=== PATIENT | female | born 2000 ===

== ENCOUNTER 2022-05-02 18:35 | Inpatient (IN) | payer BC, MEDICAID ==
[~2022-05-02] VITALS: Ht 157.4 cm; Wt 53.3 kg
[2022-05-02] VITALS (11 sets, daily range): BP systolic 95–126; BP diastolic 48–85
[2022-05-02] MEDS ORDERED: LACTATED RINGERS 1,000 ML IV ONE (20:00)
[2022-05-02 20:03] LABS: BILIRUBIN,URINE NEGATIVE (NEGATIVE); CLARITY,URINE CLEAR; COLOR,URINE YELLOW; GLUCOSE, URINE (UA) NEGATIVE (NEGATIVE); KETONES,URINE NEGATIVE (NEGATIVE); LEUKOCYTE ESTERASE ,URINE TRACE (NEGATIVE); NITRITE,URINE NEGATIVE (NEGATIVE); PROTEIN,URINE NEGATIVE (NEGATIVE)
[2022-05-02 20:13] LABS: BACTERIA,URINE TRACE /HPF; RBC,URINE 0-2 /HPF
[2022-05-02] MEDS ORDERED: PREN-142 PO (20:32)
[2022-05-02 20:40] LABS: BASOPHILS % (AUTO) 0 % (0-10); EOSINOPHILS % (AUTO) 0 % (0-10); HEMATOCRIT 33 % (35-52); HEMOGLOBIN 10.7 g/dL (11.5-16.0); LYMPHOCYTES # (AUTO) 1.2 10^3/uL (1.0-4.0); LYMPHOCYTES % (AUTO) 7 % (12-44); MEAN CORPUSCULAR HEMOGLOBIN 29 pg (25-34); MEAN CORPUSCULAR HGB CONC 33 g/dL (32-36); MEAN CORPUSCULAR VOLUME 88 fL (80-99); MEAN PLATELET VOLUME 9.8 fL (9.0-12.2); MONOCYTES # (AUTO) 1.3 10^3/uL (0.0-1.0); MONOCYTES % (AUTO) 8 % (0-12); NEUTROPHILS # (AUTO) 14.4 10^3/uL (1.8-7.8); NEUTROPHILS % (AUTO) 84 % (42-75); PLATELET COUNT 230 10^3/uL (130-400); WHITE BLOOD COUNT 17.1 10^3/uL (4.3-11.0)
[2022-05-02] MEDS ORDERED: METOCLOPRAMIDE INJ 10 MG/2 ML (REGLAN) ONE (21:14)
[2022-05-02] MEDS ORDERED: FAMOTIDINE 20MG/2ML IV (PEPCID) ONE (21:14)
[2022-05-02] MEDS ORDERED: CITRIC ACID/SOB CIT (BICITRA) 30 ML UDC ONE (21:14)
[2022-05-02] MEDS ORDERED: LACTATED RINGERS 1,000 ML IV PRN (21:15)
[2022-05-02] MEDS ORDERED: METOCLOPRAMIDE INJ 10 MG/2 ML (REGLAN) IV ONE (21:15)
[2022-05-02] MEDS ORDERED: FAMOTIDINE 20MG/2ML IV (PEPCID) IV ONE (21:15)
[2022-05-02] MEDS ORDERED: CITRIC ACID/SOB CIT (BICITRA) 30 ML UDC PO ONE (21:15)
[2022-05-02] MEDS: LACTATED RINGERS 1,000 ML IV PRN ×2 (21:17→22:00)
[2022-05-02] MEDS ORDERED: ceFAZolin INJECTION 2,000 MG ONE (21:19)
[2022-05-02] MEDS ORDERED: NS (IVPB) 50 ML ONE (21:19)
[2022-05-02] MEDS ORDERED: OXYTOCIN PRE-MIX DRIP 1,000 ML IV ONE (21:30)
[2022-05-02] MEDS ORDERED: fentaNYL INJ 100 MCG/2 ML AMP ONE (21:30)
[2022-05-02] MEDS ORDERED: ceFAZolin INJECTION 2,000 MG in NS (IVPB) 50 ML IV ONE (21:30)
--- NOTE | 2022-05-02 21:39 | History & Physical-OB/GYN ---
History of Present Illness History of Present Illness Reason for visit/HPI Labor at 40w1d Date of Admission May 02, 2022 at 21:08 Date Seen by a Provider: May 02, 2022 Time Seen by a Provider: 21:00 I consulted on this patient on 05/02/22 21:33 Attending Physician Isaias Hankins DO Admitting Physician Admitting Physician: Kayleigh Hankins DO Attending Physician: Kayleigh Hankins DO Consult I was consulted by her Family Physician due to non-reassuring FHTs remote from delivery. She had been counseled regarding a primary LTCS, which I agree with. Upon my arrival, FHTs were 160-170 with minimal variability and early/variable decels. RN reports cervix at 2-3 cm dilation. Tocos q2-3 min. Allergies and Home Medications Allergies Coded Allergies: No Known Drug Allergies (Unverified , 05/02/22) Patient Home Medication List Home Medication List Reviewed: Yes Vit No.124/Iron/FA ( Vitamin Tablet) 27 Mg Iron-800 Mcg Tablet, 1 EACH PO DAILY, (Reported) Entered as Reported by: LINDA GOLDBERG on 05/02/222031 Last Action: New Order Past Mdofzfr-Txpjzw-Dgslrw Hx Patient Social History Smoking Status: Never a Smoker 2nd Hand Smoke Exposure: No Immunizations Up To Date Date of Influenza Vaccine: Dec 16, 2021 Surgeries No Respiratory No Reproductive System Expected Date of Delivery: May 01, 2022 Hx : 1 Hx Para: 0 Hx Total # of Abortions (Spona: 0 Review of Systems Constitutional: No no symptoms reported, No see HPI, No chills, No diaphoresis, No dizziness, No fever, No malaise, No weakness, No weight gain, No weight loss, No other EENTM: No see HPI, No no symptoms reported, No ear discharge, No hearing loss, No ear pain, No blurred vision, No double vision, No eye pain, No tearing, No vision loss, No dental problems, No hoarseness, No mouth pain, No mouth swel ling, No epistaxis, No nose congestion, No nose pain, No throat pain, No throat swelling, No other Respiratory: No no symptoms reported, No see HPI, No cough, No dyspnea on exertion, No hemoptysis, No orthopnea, No phlegm, No short of breath, No stridor, No wheezing, No other Cardiovascular: No no symptoms reported, No see HPI, No chest pain, No edema, No Hx of Intervention, No palpitations, No syncope, No vascular heart diseas, No other Gastrointestinal: No RUQ, No LUQ, No RLQ, No LLQ, No no symptoms reported, No see HPI; abdominal pain; No constipation, No diarrhea, No dysphagia, No hematemesis, No heartburn, No jaundice, No loss of appetite, No melena, No nausea, No vomiting, No other Genitourinary: No no symptoms reported, No see HPI, No decreased output, No discharge, No dysuria, No frequency, No hematuria, No hesitancy, No incontinence, No nocturia, No pain, No other : Yes Musculoskeletal: No no symptoms reported, No see HPI, No back pain, No gout, No joint pain, No joint swelling, No muscle pain, No muscle stiffness, No muscle cramps, No muscle twitching, No muscle weakness, No neck pain, No other Skin: No no symptoms reported, No see HPI, No change in color, No change in hair/nails, No dryness, No hx of skin cancer, No lesions, No lumps, No pruritus, No rash, No other Psychiatric/Neurological: Denies No Symptoms Reported, Denies See HPI, Denies Anxiety, Denies Depressed, Denies Emotional Problems, Denies Headache, Denies Numbness, Denies Paresthesia, Denies Pre-Existing Deficit, Denies Seizure, Denies Tingling, Denies Tremors, Denies Weakness, Denies Other All Other Systems Reviewed Negative Unless Noted: Yes Physical Exam Physical Exam Vital Signs Vital Signs Date Time Temp Pulse Resp B/P (MAP) Pulse Ox O2 Delivery O2 Flow Rate FiO2 05/02/22 19:15 37.3 115 18 126/77 100 Room Air 05/02/22 18:55 37.3 115 18 126/77 (93) 100 Room Air Capillary Refill : NONE Labs Laboratory Tests 05/02/22 18:45: Urine Color YELLOW, Urine Clarity CLEAR, Urine pH 7.0, Urine Specific [place] 1.015L, Urine Protein NEGATIVE, Urine Glucose (UA) NEGATIVE, Urine Ketones NEGATIVE, Urine Nitrite NEGATIVE, Urine Bilirubin NEGATIVE, Urine Urobilinogen 0.2, Urine Leukocyte Esterase TRACEH, Urine RBC (Auto) NEGATIVE, Urine RBC 0-2, Urine WBC 5-10H, Urine Squamous Epithelial Cells 2-5, Urine Crystals NONE, Urine Bacteria TRACE, Urine Casts NONE, Urine Mucus SMALLH, Urine Culture Indicated YES 05/02/22 19:55: White Blood Count 17.1H, Red Blood Count 3.70L, Hemoglobin 10.7L, Hematocrit 33L , Mean Corpuscular Volume 88, Mean Corpuscular Hemoglobin 29, Mean Corpuscular Hemoglobin Concent 33, Red Cell Distribution Width 15.0H, Platelet Count 230, Mean Platelet Volume 9.8, Immature Granulocyte % (Auto) 1, Neutrophils (%) (Auto) 84H, Lymphocytes (%) (Auto) 7L, Monocytes (%) (Auto) 8, Eosinophils (%) (Auto) 0, Basophils (%) (Auto) 0, Neutrophils # (Auto) 14.4H, Lymphocytes # (Auto) 1.2, Monocytes # (Auto) 1.3H, Eosinophils # (Auto) 0.0, Basophils # (Auto) 0.0, Immature Granulocyte # (Auto) 0.1 General Appearance: Mild Distress Respiratory: No Respiratory Distress Cardiovascular: No Edema Abdominal: other Pelvic Exam: deferred Extremity: No Calf Tenderness Assessment/Plan Assessment and Plan IUP at 40w1d Early labor Non-reassuring FHTs remote from delivery. GBS+ Fetus with known cleft lip. Will proceed with PLTCS. R/B/A d/w pt including but not limited to bleeding, infection, and risk of injury to bowel, bladder, ureters and large vessels. Admission Diagnosis Admission Status: Inpatient Order (span 2 midnights) Reason for Inpatient Admission: PLTCS KAYLEIGH HANKINS DO May 02, 2022 21:39
[2022-05-02] MEDS ORDERED: KETAMINE 50 MG/5 ML SYRINGE ONE (21:58)
[2022-05-02] MEDS ORDERED: KETAMINE HCL 100 MG/ML 5 ML VIAL ONE (22:04)
[2022-05-02] MEDS ORDERED: MIDAZOLAM 10 MG/2 ML (VERSED) VIAL ONE (22:05)
[2022-05-02] MEDS ORDERED: MIDAZOLAM 2 MG/2 ML (VERSED) VIAL ONE (22:05)
[2022-05-02] MEDS ORDERED: METHYLERGONOVINE 0.2 MG/ML (METHERGINE) AMP ONE (22:07)
[2022-05-02] MEDS ORDERED: CARBOPROST (HEMABATE) 250 MCG/ML AMP IM ONE (22:11)
[2022-05-02] MEDS ORDERED: proPOfol 200 MG/20 ML (DIPRIVAN) VIAL IV ONE ×2 (22:40→22:41)
[2022-05-02] MEDS ORDERED: TETANUS,DIPTH,PERTUSS P/F (BOOSTRIX) 0.5 ML VIAL IM SCH (22:45)
[2022-05-02] MEDS ORDERED: ONDANSETRON 4 MG/2 ML (SDV) Z0FRAN IVP PRN ×2 (22:45→23:00)
[2022-05-02] MEDS ORDERED: MEASLES,MUMPS,RUBELLA 1 EA INJ SC SCH (22:45)
[2022-05-02 22:48] LABS: BAND NEUTROPHILS 3 %; LYMPHOCYTES % (MANUAL) 16 %; MONOCYTES % (MANUAL) 4 %; NEUTROPHILS % (MANUAL) 77 %; PLATELET ESTIMATE NORMAL; RBC MORPH NORMAL
[2022-05-02] MEDS ORDERED: HYDROmorphone 2 MG/ML VIAL (DILAUDID) IV ONE (23:00)
[2022-05-02] MEDS ORDERED: oxyCODONE/APAP 5/325MG (PERCOCET 5) TABLET PO PRN (23:00)
[2022-05-02] MEDS ORDERED: HYDROmorphone 2 MG/ML VIAL (DILAUDID) ONE (23:01)
--- NOTE | 2022-05-02 23:03 | Cesarean Section Operative ---
Procedure Procedure Note Pre-operative Diagnosis: Funmilayo Frederick is a (21 /Para 1 / 0, Gestational Age (wks)40 in early labor with non-reassuring FHTs remote from delivery. GBS+. cleft lip. Post-operative Diagnosis: same as above. Uterine atony. Procedure: Primary low transverse section Physician: KAYLEIGH MUNGUIA DO Estimated blood loss: 1200 mL Disposition: Stable at transfer to recovery room. Findings: Viable female , Apgars 6/9, intact placenta, normal appearing uterus, tubes, and ovaries. Indications:Funmilayo Frederick is a (21 /Para 1 / 0,Gestational Age (wks) 40 presenting in early labor with non-reassuring FHTs remote from delivery. Procedure Details: The patient was seen in pre-op and the procedure was discussed with the patient in full, including the risks, benefits, and alternatives. All questions were answered. The patient was taken to the operating room and a time out was performed, verifying patient and procedure. After spinal anesthesia was placed by our anesthesia colleagues, the patient was placed in the dorsal supine with leftward tilt for uterine displacement.~ Her abdomen was then prepped and draped in the typical sterile fashion. A Pfannenstiel skin incision was made using a scalpel and carried down through the underlying fascia. The fascia was incised in the midline and tented up using Brendon clamps. On both the inferior and superior fascia side the rectus muscle was dissected off bluntly and sharply using Woods scissors. The peritoneum was identified and entered bluntly in the midline. This was then stretched laterally using manual strength. After entering the abdominal cavity the bladder blade was placed. A bladder flap was created with the use of Metzenbaum scissors.~ A scalpel was utilized to make a low transverse uterine incision. Amniotomy was performed bluntly and large amount of meconium stained fluid was noted. The 's head was grasped and brought to the level of the incision. Fundal pressure was applied and infant was delivered without difficulty. A large cleft lip was noted. Mouth was suctioned with bulb suction. After the umbilical cord was clamped and cut, the was handed off to the pediatric staff. Cord blood was then obtained. The placenta was delivered intact via uterine massage. The uterus was exteriorized and cleared of all clots and debris. The uterine incision was closed using 1.0 Vicryl in a running locked fashion. A second imbricated layer was placed using 1.0 Vicryl in a running fashion as well. The uterus was flexed forward and the posterior rectouterine space was inspected and cleared of all clots and debris. Uterine atony was encountered and she was given IV Pitocin, IM hemabate, IM Methergine, and IV TXA. Again the hysterotomy site was examined and hemostasis was observed. The bilateral tubes and ovaries appeared normal. The uterus was placed back into the abdominal cavity and abdominal gutters were cleared of all clots and debris. A final check of the uterine incision showed it to be hemostatic. The peritoneum and muscle were closed using 1-0 Vicryl suture. The fascia was closed with 2.0 Stratafix V-lock suture in a running fashion. The subcutaneous space was hemostatic. The skin was then closed using 4-0 Monocryl in a running subcuticular fashion. The skin edges were reapproximated together and were hemostatic. All sponge, lap and needle counts were correct at the end of the procedure per nursing. Vitals - Labs Vital Signs - I&O Vital Signs Date Time Temp Pulse Resp B/P (MAP) Pulse Ox O2 Delivery O2 Flow Rate FiO2 05/02/22 19:15 37.3 115 18 126/77 100 Room Air 05/02/22 18:55 37.3 115 18 126/77 (93) 100 Room Air 05/02/22 18:55 37.3 115 18 100 Room Air Labs Laboratory Tests 05/02/22 18:45: Urine Color YELLOW, Urine Clarity CLEAR, Urine pH 7.0, Urine Specific [place] 1.015L, Urine Protein NEGATIVE, Urine Glucose (UA) NEGATIVE, Urine Ketones NEGATIVE, Urine Nitrite NEGATIVE, Urine Bilirubin NEGATIVE, Urine Urobilinogen 0.2, Urine Leukocyte Esterase TRACEH, Urine RBC (Auto) NEGATIVE, Urine RBC 0-2, Urine WBC 5-10H, Urine Squamous Epithelial Cells 2-5, Urine Crystals NONE, Urine Bacteria TRACE, Urine Casts NONE, Urine Mucus SMALLH, Urine Culture Indicated YES 05/02/22 19:55: White Blood Count 17.1H, Red Blood Count 3.70L, Hemoglobin 10.7L, Hematocrit 33L , Mean Corpuscular Volume 88, Mean Corpuscular Hemoglobin 29, Mean Corpuscular Hemoglobin Concent 33, Red Cell Distribution Width 15.0H, Platelet Count 230, Mean Platelet Volume 9.8, Immature Granulocyte % (Auto) 1, Neutrophils (%) (Auto) 84H, Lymphocytes (%) (Auto) 7L, Monocytes (%) (Auto) 8, Eosinophils (%) (Auto) 0, Basophils (%) (Auto) 0, Neutrophils # (Auto) 14.4H, Lymphocytes # (Auto) 1.2, Monocytes # (Auto) 1.3H, Eosinophils # (Auto) 0.0, Basophils # (Auto) 0.0, Immature Granulocyte # (Auto) 0.1, Neutrophils % (Manual) 77, L ymphocytes % (Manual) 16, Monocytes % (Manual) 4, Band Neutrophils 3, Platelet Estimate NORMAL, Blood Morphology Comment NORMAL KAYLEIGH MUNGUIA DO May 02, 2022 23:03
[2022-05-02] MEDS: OXYTOCIN PRE-MIX DRIP 500 ML IV SCH (23:56)
[2022-05-03] VITALS (13 sets, daily range): BP systolic 93–106; BP diastolic 52–683
[2022-05-03] MEDS: oxyCODONE/APAP 5/325MG (PERCOCET 5) TABLET PO PRN ×5 (01:13→20:36)
[2022-05-03] MEDS ORDERED: AMPICILLIN FOR IV USE 2,000 MG in WATER (STERILE) FOR INJECTION 14.8 ML IV ONE (01:30)
[2022-05-03] MEDS ORDERED: AMPICILLIN 2,000 MG/14.8 ML (IV USE) ONE (02:08)
[2022-05-03] MEDS ORDERED: D5 LR IV SOLUTION 1,000 ML IV ONE (04:00)
[2022-05-03] MEDS: D5 LR IV SOLUTION 1,000 ML IV SCH ×2 (04:02→21:55)
[2022-05-03] MEDS: OXYTOCIN PRE-MIX DRIP 500 ML IV SCH (04:06)
[2022-05-03 06:10] LABS: BASOPHILS # (AUTO) 0.1 10^3/uL (0.0-0.1); BASOPHILS % (AUTO) 0 % (0-10); EOSINOPHILS # (AUTO) 0.1 10^3/uL (0.0-0.3); EOSINOPHILS % (AUTO) 0 % (0-10); LYMPHOCYTES # (AUTO) 1.3 10^3/uL (1.0-4.0); LYMPHOCYTES % (AUTO) 8 % (12-44); MEAN CORPUSCULAR HEMOGLOBIN 30 pg (25-34); MEAN CORPUSCULAR HGB CONC 34 g/dL (32-36); MEAN CORPUSCULAR VOLUME 88 fL (80-99); MEAN PLATELET VOLUME 9.6 fL (9.0-12.2); MONOCYTES % (AUTO) 6 % (0-12); NEUTROPHILS # (AUTO) 14.1 10^3/uL (1.8-7.8); NEUTROPHILS % (AUTO) 85 % (42-75); PLATELET COUNT 147 10^3/uL (130-400); WHITE BLOOD COUNT 16.5 10^3/uL (4.3-11.0)
[2022-05-03 06:13] LABS: HEMATOCRIT 19 % (35-52); HEMOGLOBIN 6.5 g/dL (11.5-16.0)
[2022-05-03] MEDS: CATHETER FLUSH 10 ML SYR IV SCH ×3 (06:18→22:53)
[2022-05-03] MEDS ORDERED: NS IV 500 ML 500 ML IV SCH (06:45)
[2022-05-03] MEDS ORDERED: CLINDAMYCIN 600 MG/50 ML IVPB 50 ML IV ONE (07:30)
[2022-05-03] MEDS ORDERED: D5W IV ONE (08:00)
[2022-05-03] MEDS ORDERED: GENTAMICIN IV ONE (08:00)
--- NOTE | 2022-05-03 08:03 | Anesthesia-Regional Post-Op ---
Regional Patient Condition Mental Status: Alert, Oriented x3 Circulation: Same as Pre-Op Headache: Absent Sensation: Full Recovery Motor Block: Absent Post Op Complications Complications None Follow Up Care/Instructions Patient Instructions None needed. Anesthesia/Patient Condition Patient is doing well, no complaints, stable vital signs, no apparent adverse anesthesia problems. No complications reported per nursing. [place] [facility] [place] Weiss CRNA May 03, 2022 08:03
[2022-05-03] MEDS: DOCUSATE SODIUM 100 MG (COLACE) CAP PO SCH ×2 (10:13→20:35)
[2022-05-03] MEDS: AMPICILLIN FOR IV USE 2,000 MG in WATER (STERILE) FOR INJECTION 14.8 ML IV SCH ×3 (11:05→21:52)
--- NOTE | 2022-05-03 12:20 | Postpartum Progress Note ---
Post Op Post-operative Day #1 Subjective: Patient had a fever shortly after the . She was started on IV abx and has not had a fever since then. Her Hgb came back <7 and she was symptomatic, so 2 units of PRBCs was ordered. She has received one unit so far. She is resting bed having slept most of the night and morning. [place] still in place. Minimal bleeding now per RN. Objective: Vital Signs 05/03/22 12:04 Temp 36.3 Pulse 89 Resp 18 B/P (MAP) 93/52 Pulse Ox 98 O2 Delivery Nasal Cannula O2 Flow Rate 1.00 Physical Exam: General - Alert and oriented, no apparent distress Abdomen - Soft, appropriately tender to palpation, non-distended, fundus firm at umbilicus Incision - dressing dry Extremities - no edema, negative Maya's bilaterally Laboratory Tests Test 05/02/22 18:45 05/02/22 19:55 05/03/22 01:30 05/03/22 05:52 Range/Units Urine Color YELLOW Urine Clarity CLEAR Urine pH 7.0 5-9 Urine Specific [place] 1.015 L 1.016-1.022 Urine Protein NEGATIVE NEGATIVE Urine Glucose (UA) NEGATIVE NEGATIVE Urine Ketones NEGATIVE NEGATIVE Urine Nitrite NEGATIVE NEGATIVE Urine Bilirubin NEGATIVE NEGATIVE Urine Urobilinogen 0.2 < = 1.0 MG/DL Urine Leukocyte Esterase TRACE H NEGATIVE Urine RBC (Auto) NEGATIVE NEGATIVE Urine RBC 0-2 /HPF Urine WBC 5-10 H /HPF Urine Squamous Epithelial Cells 2-5 /HPF Urine Crystals NONE /LPF Urine Bacteria TRACE /HPF Urine Casts NONE /LPF Urine Mucus SMALL H /LPF Urine Culture Indicated YES White Blood Count 17.1 H 16.5 H 4.3-11.0 10^3/uL Red Blood Count 3.70 L 2.18 L 3.80-5.11 10^6/uL Hemoglobin 10.7 L 6.5 #*L 11.5-16.0 g/dL Hematocrit 33 L 19 *L 35-52 % Mean Corpuscular Volume 88 88 80-99 fL Mean Corpuscular Hemoglobin 29 30 25-34 pg Mean Corpuscular Hemoglobin Concent 33 34 32-36 g/dL Red Cell Distribution Width 15.0 H 15.0 H 10.0-14.5 % Platelet Count 230 147 130-400 10^3/uL Mean Platelet Volume 9.8 9.6 9.0-12.2 fL Immature Granulocyte % (Auto) 1 1 % Neutrophils (%) (Auto) 84 H 85 H 42-75 % Lymphocytes (%) (Auto) 7 L 8 L 12-44 % Monocytes (%) (Auto) 8 6 0-12 % Eosinophils (%) (Auto) 0 0 0-10 % Basophils (%) (Auto) 0 0 0-10 % Neutrophils # (Auto) 14.4 H 14.1 H 1.8-7.8 10^3/uL Lymphocytes # (Auto) 1.2 1.3 1.0-4.0 10^3/uL Monocytes # (Auto) 1.3 H 1.0 0.0-1.0 10^3/uL Eosinophils # (Auto) 0.0 0.1 0.0-0.3 10^3/uL Basophils # (Auto) 0.0 0.1 0.0-0.1 10^3/uL Immature Granulocyte # (Auto) 0.1 0.1 0.0-0.1 10^3/uL Neutrophils % (Manual) 77 % Lymphocytes % (Manual) 16 % Monocytes % (Manual) 4 % Band Neutrophils 3 % Platelet Estimate NORMAL Blood Morphology Comment NORMAL Creatinine 0.65 0.60 0.60-1.30 MG/DL Assessment: post-operative day # 1, status post PLTCS. Uterine atony with significant hemorrhage - receiving 2 units of PRBCs now. fever - on IV abx (Amp/clinda/Gent - dosing per pharmacy). Plan: D/C [place] when second unit of PRBCs given. Increase activity today. Continue IV abx until fever free for 24 hours. Repeat H/H an hour after blood given. Vitals - Labs Vital Signs - I&O Vital Signs Date Time Temp Pulse Resp B/P (MAP) Pulse Ox O2 Delivery O2 Flow Rate FiO2 05/03/22 12:04 36.3 89 18 93/52 98 Nasal Cannula 1.00 05/03/22 11:45 36.4 97 18 97/53 98 Nasal Cannula 1.00 05/03/22 10:56 36.4 94 18 96/53 98 Nasal Cannula 1.00 05/03/22 10:22 36.8 05/03/22 08:16 36.8 103 18 97/54 98 Nasal Cannula 1.00 05/03/22 07:52 37.1 104 18 98/57 98 Nasal Cannula 05/03/22 07:35 37.1 104 18 100/56 (71) 98 Nasal Cannula 1.00 05/03/22 06:35 38.0 106 18 99/58 (72) 98 Nasal Cannula 1.00 05/03/22 03:19 97 Nasal Cannula 1.00 05/03/22 03:17 38.4 118 24 106/58 (74) 94 Room Air 05/03/22 02:33 38.6 05/03/22 02:18 38.6 05/03/22 01:15 38.6 05/02/22 23:47 38.5 113 16 106/68 (81) 100 Room Air 05/02/22 23:35 Nasal Cannula 2.00 05/02/22 23:30 37.1 20 104/70 (81) 98 Nasal Cannula 2.00 05/02/22 23:20 17 109/85 (93) 98 Nasal Cannula 2.00 05/02/22 23:15 Nasal Cannula 2.00 05/02/22 23:10 20 112/80 (91) 99 Nasal Cannula 2.00 05/02/22 23:00 Nasal Cannula 2.00 05/02/22 23:00 17 95/48 (64) 99 Nasal Cannula 2.00 05/02/22 22:56 16 105/76 (86) 98 Nasal Cannula 2.00 05/02/22 22:46 Nasal Cannula 2.00 05/02/22 22:46 36.3 16 110/68 (82) 98 Nasal Cannula 2.00 05/02/22 21:02 106 18 124/79 (94) 100 Room Air 05/02/22 20:04 37.7 107 18 104/58 (73) Room Air 05/02/22 19:15 37.3 115 18 126/77 100 Room Air 05/02/22 18:55 37.3 115 18 126/77 (93) 100 Room Air 05/02/22 18:55 37.3 115 18 100 Room Air I & O 05/03/22 07:00 Intake Total 3079.6 ml Output Total 1025 ml Balance 2054.6 ml Labs Laboratory Tests 05/02/22 18:45: Urine Color YELLOW, Urine Clarity CLEAR, Urine pH 7.0, Urine Specific [place] 1.015L, Urine Protein NEGATIVE, Urine Glucose (UA) NEGATIVE, Urine Ketones NEGATIVE, Urine Nitrite NEGATIVE, Urine Bilirubin NEGATIVE, Urine Urobilinogen 0.2, Urine Leukocyte Esterase TRACEH, Urine RBC (Auto) NEGATIVE, Urine RBC 0-2, Urine WBC 5-10H, Urine Squamous Epithelial Cells 2-5, Urine Crystals NONE, Urine Bacteria TRACE, Urine Casts NONE, Urine Mucus SMALLH, Urine Culture Indicated YES 05/02/22 19:55: White Blood Count 17.1H, Red Blood Count 3.70L, Hemoglobin 10.7L, Hematocrit 33L , Mean Corpuscular Volume 88, Mean Corpuscular Hemoglobin 29, Mean Corpuscular Hemoglobin Concent 33, Red Cell Distribution Width 15.0H, Platelet Count 230, Mean Platelet Volume 9.8, Immature Granulocyte % (Auto) 1, Neutrophils (%) (Auto) 84H, Lymphocytes (%) (Auto) 7L, Monocytes (%) (Auto) 8, Eosinophils (%) (Auto) 0, Basophils (%) (Auto) 0, Neutrophils # (Auto) 14.4H, Lymphocytes # (Auto) 1.2, Monocytes # (Auto) 1.3H, Eosinophils # (Auto) 0.0, Basophils # (Auto) 0.0, Immature Granulocyte # (Auto) 0.1, Neutrophils % (Manual) 77, Lymphocytes % (Manual) 16, Monocytes % (Manual) 4, Band Neutrophils 3, Platelet Estimate NORMAL, Blood Morphology Comment NORMAL 05/03/22 01:30: Creatinine 0.65 05/03/22 05:52: White Blood Count 16.5H, Red Blood Count 2.18L, Hemoglobin 6.5#*L, Hematocrit 19*L, Mean Corpuscular Volume 88, Mean Corpuscular Hemoglobin 30, Mean Corpuscular Hemoglobin Concent 34, Red Cell Distribution Width 15.0H, Platelet Count 147, Mean Platelet Volume 9.6, Immature Granulocyte % (Auto) 1, Neutrophils (%) (Auto) 85H, Lymphocytes (%) (Auto) 8L, Monocytes (%) (Auto) 6, Eosinophils (%) (Auto) 0, Basophils (%) (Auto) 0, Neutrophils # (Auto) 14.1H, Lymphocytes # (Auto) 1.3, Monocytes # (Auto) 1.0, Eosinophils # (Auto) 0.1, Basophils # (Auto) 0.1, Immature Granulocyte # (Auto) 0.1, Creatinine 0.60 AKYLEIGH MUNGUIA DO May 03, 2022 12:20
[2022-05-03 16:00] LABS: HEMOGLOBIN 10.6 g/dL (11.5-16.0)
[2022-05-03] MEDS ORDERED: CLINDAMYCIN 600 MG/50 ML IVPB 50 ML IV SCH ×2 (17:00→20:00)
[2022-05-04 03:19] VITALS: BP 100/64
[2022-05-04] MEDS: AMPICILLIN FOR IV USE 2,000 MG in WATER (STERILE) FOR INJECTION 14.8 ML IV SCH (03:19)
[2022-05-04] MEDS: CATHETER FLUSH 10 ML SYR IV SCH ×2 (08:00→14:00)
[2022-05-04 09:10] VITALS: BP 108/66
[2022-05-04] MEDS: DOCUSATE SODIUM 100 MG (COLACE) CAP PO SCH (09:11)
--- NOTE | 2022-05-04 10:47 | Postpartum Progress Note ---
Post Op Post-operative Day #2 Subjective: Patient is without complaints. Ambulating, voiding after woods removed. Tolerating a regular diet without nausea or vomiting. Normal lochia. Pain is well controlled with oral pain medications. Afebrile >24 hours. Baby was transferred to [facility] due to cleft lip. Funmilayo would like to be discharged so she can be with her baby. Objective: Vital Signs 05/03/22 05/04/22 12:05 09:10 Temp 36.5 Pulse 99 Resp 18 B/P (MAP) 108/66 (80) Pulse Ox 96 O2 Delivery Room Air O2 Flow Rate 1.00 Physical Exam: General - Alert and oriented, no apparent distress Abdomen - Soft, appropriately tender to palpation, non-distended, fundus firm at umbilicus Incision - clean, dry and intact; no erythema or induration, no drainage Extremities - no edema, negative Maya's bilaterally. Laboratory Tests Test 05/03/22 13:50 Range/Units Hemoglobin 10.6 #L 11.5-16.0 g/dL Hematocrit 31 L 35-52 % Assessment: post-operative day # 2, status post PLTCS. Recovering well, hemodynamically stable. Anemia - s/p blood transfusion. Asymptomatic now. Plan: D/C home. Instructions given. Rx sent to [facility]. F/U in 1wk with her regular OB. Vitals - Labs Vital Signs - I&O Vital Signs Date Time Temp Pulse Resp B/P (MAP) Pulse Ox O2 Delivery O2 Flow Rate FiO2 05/04/22 09:10 36.5 99 18 108/66 (80) 96 Room Air 05/04/22 03:19 36.7 102 18 100/64 (76) 96 Room Air 05/03/22 23:10 37.5 113 18 97/683 (490) 99 Room Air 05/03/22 20:36 36.6 106 18 97/69 (78) 98 Room Air 05/03/22 16:15 37.5 115 18 106/71 (83) 98 Room Air 05/03/22 15:31 37.0 05/03/22 14:36 37.0 100 18 102/62 98 Room Air 05/03/22 12:05 36.3 89 18 93/52 (66) 98 Nasal Cannula 1.00 05/03/22 12:04 36.3 89 18 93/52 98 Nasal Cannula 1.00 05/03/22 11:45 36.4 97 18 97/53 98 Nasal Cannula 1.00 05/03/22 10:56 36.4 94 18 96/53 98 Nasal Cannula 1.00 I & O 05/04/22 07:00 Intake Total 2351.15 ml Output Total 550 ml Balance 1801.15 ml Labs Laboratory Tests 05/03/22 13:50: Hemoglobin 10.6#L, Hematocrit 31L KAYLEIGH MUNGUIA DO May 04, 2022 10:46
[2022-05-04] MEDS ORDERED: OXYC1TAB87 PO (11:03)
[2022-05-04] MEDS: oxyCODONE/APAP 5/325MG (PERCOCET 5) TABLET PO PRN (12:48)
== END 2022-05-04 14:20 | disposition home or self-care (01) | DRG 787 ==
LOC: WSo 18:35 → LDRP 18:36 → WSo 21:07 → LDRP 21:08
PROVIDERS: ADMIT Obstetrics & Gynecology; ATTEND Obstetrics & Gynecology
PROC: 10D00Z1 Extraction of Products of Conception, Low, Open Approach (ICD-10-PCS; principal; 2022-05-02 21:40)
DX: O48.0 Post-term pregnancy (principal); O72.1 Other immediate postpartum hemorrhage; O86.4 Pyrexia of unknown origin following delivery; O76 Abnormality in fetal heart rate and rhythm complicating labor and delivery; Z3A.40 40 weeks gestation of pregnancy; O99.824 Streptococcus B carrier state complicating childbirth; Z37.0 Single live birth; D64.9 Anemia, unspecified; O90.81 Anemia of the puerperium
CPT/HCPCS: 36415; 81000; 82565; 85007; 85014; 85018; 85025; 85027; 86850; 86900; 86901; 86920; 87077; 87088; 99213